=== PATIENT | female | born 1985 | race Caucasian/White ===

== ENCOUNTER 2021-09-19 17:05 | Emergency (ER) | payer OTHER ==
[~2021-09-19] VITALS: Ht 160 cm; Wt 63.5 kg
[2021-09-19 17:42] VITALS: BP 142/77
--- NOTE | 2021-09-19 17:46 | NUR ---
BIB SELF C/O 04/01 LEFT CHEEK PAIN, SONI X TODAY.
[2021-09-19] MEDS ORDERED: AMOX-1000 PO (18:11)
[2021-09-19] MEDS ORDERED: NAPR-54 PO (18:11)
[2021-09-19 18:35] VITALS: BP 142/77
--- NOTE | 2021-09-19 18:35 | NUR ---
Patient discharged with v/s stable. Written and verbal after care instructions given and explained. Patient alert, oriented and verbalized understanding of instructions. Ambulatory with steady gait. All questions addressed prior to discharge. ID band removed. Patient advised to follow up with PMD. Rx of AGMENTIN,NAPROXEN given. Patient educated on indication of medication including possible reaction and side effects. Opportunity to ask questions provided and answered.
== END 2021-09-19 18:35 | disposition home or self-care (01) ==
LOC: MED 17:05
DX: K11.20 Sialoadenitis, unspecified (principal)
CPT/HCPCS: 99283